=== PATIENT | female | born 1965 | race Two or more races ===

== ENCOUNTER → 2023-04-21 | Emergency (ER) | payer OTHER ==
[~2023-04-21] VITALS: Ht 157.5 cm; Wt 67.1 kg
[~2023-04-21] MED LIST: COZAAR25 MG PO
== END | disposition home or self-care (01) ==
LOC: ER 00:51
DX: M54.2 Cervicalgia (principal); S13.4XXA Sprain of ligaments of cervical spine, initial encounter; V49.9XXA Car occupant (driver) (passenger) injured in unspecified traffic accident, initial encounter; Y92.9 Unspecified place or not applicable; Y99.9 Unspecified external cause status

== ENCOUNTER 2024-08-27 10:43 | Day surgery (SDC) | payer OTHER ==
[~2024-08-27 10:43] MED LIST changes: +ATORVASTATIN CA20 MG PO
[2024-08-27] MEDS ORDERED: CEFAZOLIN SODIUM 1,000 MG VIAL IV ONE (18:30)
[2024-08-27] MEDS ORDERED: POVIDONE-IODINE 118 ML BOTT TOP ONE (18:30)
== END 2024-08-27 23:30 | disposition home or self-care (01) ==
LOC: CIR.AMB 10:43
PROVIDERS: ATTEND Obstetrics & Gynecology
DX: N85.00 Endometrial hyperplasia, unspecified (principal); R93.5 Abnormal findings on diagnostic imaging of other abdominal regions, including retroperitoneum